=== PATIENT | male | born 1955 | race American Indian/Alaskan Native ===

== ENCOUNTER 2018-01-14 19:49 | Emergency (ER) | payer OTHER ==
[2018-01-14 21:01] VITALS: BMI 31.5
--- NOTE | 2018-01-14 22:23 | ED PDOC ---
Arrival/HPI - General Historian: Patient <Tyler Birch - Last Filed: 01/15/18 00:13> <Moises Pearl - Last Filed: 01/15/18 00:31> - General Chief Complaint: Male Genitourinary Time Seen by Provider: 01/14/18 20:54 - History of Present Illness Narrative History of Present Illness (Text): Patient is a 62 year old male with past medical history of right hip replacement ("years ago"), currently only taking a multivitamin, presenting to the emergency department with a complaint of problems with urination worsening over that past week. The patient states he has had an increasing in urinary frequency, decreased output, dribbling, increased nocturia (approximately 5 times per night), increased straining and starting and stopping stream. He first noticed increased straining with urination approximately two months ago. It has been getting progressively harder to urinate. Over the past week he has noticed all of the other symptoms. He denies any burning with urination or penile discharge. He has no other complaints at this time. Denies fevers, chills , nausea, vomiting, diarrhea, constipation, chest pain, abdominal pain, shortness of breath, vision changes, headaches, numbness or tingling. (Tyler Birch) Past Medical History - Provider Review Nursing Documentation Reviewed: Yes - Past History Past History: No Previous - Infectious Disease Hx of Infectious Diseases: None - Tetanus Immunization Tetanus Immunization: Unknown - Cardiac Hx Cardiac Disorders: No - Pulmonary Hx Respiratory Disorders: No - Neurological Hx Neurological Disorder: No - HEENT Hx HEENT Disorder: No - Renal Hx Renal Disorder: No - Endocrine/Metabolic Hx Endocrine Disorders: Yes Hx Diabetes Mellitus Type 2: Yes (NIDD) Other/Comment: no medications at present time - Hematological/Oncological Hx Blood Disorders: No - Integumentary Hx Dermatological Disorder: No - Musculoskeletal/Rheumatological Hx Musculoskeletal Disorders: No - Gastrointestinal Hx Gastrointestinal Disorders: No - Genitourinary/Gynecological Hx Genitourinary Disorders: No - Psychiatric Hx Psychophysiologic Disorder: No Hx Substance Use: No - Anesthesia Hx Anesthesia: Yes Hx Anesthesia Reactions: No Hx Malignant Hyperthermia: No - Suicidal Assessment Feels Threatened In Home Enviroment: No <Tyler Birch - Last Filed: 01/15/18 00:13> Family/Social History - Physician Review Nursing Documentation Reviewed: Yes Family/Social History: Unknown Family HX (does not know father), Diabetes ( mother) Smoking Status: Never Smoked Hx Alcohol Use: No Hx Substance Use: No Hx Substance Use Treatment: No <Tyler Birch - Last Filed: 01/15/18 00:13> Allergies/Home Meds <Tyler Birch - Last Filed: 01/15/18 00:13> <Moises Pearl - Last Filed: 01/15/18 00:31> Allergies/Adverse Reactions: Allergies No Known Allergies Allergy (Verified 03/23/16 12:30) Review of Systems - Physician Review All systems were reviewed & negative as marked: Yes - Review of Systems Constitutional: Normal Eyes: Normal ENT: Normal Respiratory: Normal Cardiovascular: Normal Gastrointestinal: Normal Genitourinary Male: Frequency, Urinary Output Changes (decreased), Other (poor stream, starting and stopping). absent: Hematuria Musculoskeletal: Normal Skin: Normal Neurological: Normal Endocrine: Normal Hemo/Lymphatic: Normal Psychiatric: Normal <Tyler Birch - Last Filed: 01/15/18 00:13> Physical Exam - Systems Exam Head: Present: Atraumatic, Normocephalic Pupils: Present: PERRL Extroacular Muscles: Present: EOMI Conjunctiva: Present: Normal Mouth: Present: Moist Mucous Membranes Neck: Present: Normal Range of Motion Respiratory/Chest: Present: Clear to Auscultation, Good Air Exchange. No: Respiratory Distress, Accessory Muscle Use Cardiovascular: Present: Regular Rate and Rhythm, Normal S1, S2. No: Murmurs Abdomen: No: Tenderness, Distention, Peritoneal Signs Back: Present: Normal Inspection Upper Extremity: Present: Normal Inspection. No: Cyanosis, Edema Lower Extremity: Present: Normal Inspection. No: Edema Neurological: Present: GCS=15, CN II-XII Intact, Speech Normal Skin: Present: Warm, Dry, Normal Color. No: Rashes Psychiatric: Present: Alert, Oriented x 3, Normal Insight, Normal Concentration <Tyler Birch - Last Filed: 01/15/18 00:13> Vital Signs Reviewed: Yes Temperature: Afebrile Blood Pressure: Normal Pulse: Regular Respiratory Rate: Normal Appearance: Positive for: Well-Appearing, Non-Toxic, Comfortable Pain Distress: None Mental Status: Positive for: Alert and Oriented X 3 <Moises Pearl - Last Filed: 01/15/18 00:31> Vital Signs Pulse Resp BP Pulse Ox 01/14/18 23:00 70 18 150/90 100 Medical Decision Making Re-evaluation Time: 22:36 Reassessment Condition: Re-examined, Unchanged - Lab Interpretations I have reviewed the lab results: Yes Interpretation: Abnormal lab values <Tyler Birch - Last Filed: 01/15/18 00:13> <Moises Pearl - Last Filed: 01/15/18 00:31> ED Course and Treatment: 01/14/18 21:30 Ordered UA 01/14/18 22:34 Bladder Scan - post void residual of 223mL - will place straight cath awaiting UA results 01/14/18 23:09 David w/ bag placed, approx. 260mL removed - patient reports relief with catheter. (Tyler Birch) Impression: Pt seen and evaluated with medical library assistant. Aware and agrees with HPI, clinical findings, plan, and management. Pt, whose past medical history includes right hip replacement, presented for decreased urinary output, urinary frequency, and increased nocturia over the past week. Plan: -- Urinalysis -- David catheter placement -- Reassess and disposition 01/14/18 23:05 PROCEDURE: David catheter placement Performed by the emergency provider Consent: Informed consent, after discussion of the risks, benefits, and alternatives to the procedure was obtained. Timeout: A timeout to verify the correct patient, procedure, and site was performed. Indication: Urinary retention Procedure: 18 Urdu David catheter inserted without difficulty. Post-procedure: The patient tolerated the procedure well with no immediate complications. Urine draining without difficulty. Pt reports relief following David catheter insertion. (Moises Pearl) - Lab Interpretations Lab Results: Lab Results 01/14/18 23:02: Urine Color Yellow, Urine Appearance Sl cloudy, Urine pH 6.0, Ur Specific [place] >= 1.030, Urine Protein 100 H, Urine Glucose (UA) Negative, Urine Ketones Negative, Urine Blood Small H, Urine Nitrate Negative, Urine Bilirubin Negative, Urine Urobilinogen 0.2, Ur Leukocyte Esterase Small H, Urine RBC 0 - 2, Urine WBC Tntc, Ur Epithelial Cells 0 - 2, Urine Bacteria Many - Medication Orders Current Medication Orders: Discontinued Medications Ciprofloxacin (Cipro) 500 mg PO ONCE STA PRN Reason: Protocol Stop: 01/14/18 23:43 Disposition/Present on Arrival - Present on Arrival Any Indicators Present on Arrival: No History of DVT/PE: No History of Uncontrolled Diabetes: No Urinary Catheter: No History of Decub. Ulcer: No History Surgical Site Infection Following: None - Disposition Have Diagnosis and Disposition been Completed?: Yes Disposition Time: 00:24 Patient Plan: Discharge <Tyler Birch - Last Filed: 01/15/18 00:13> <Moises Pearl - Last Filed: 01/15/18 00:31> - Disposition Diagnosis: Urinary retention Disposition: HOME/ ROUTINE Patient Problems: Current Active Problems Problem Status Onset Urinary retention Acute Condition: IMPROVED Discharge Instructions (ExitCare): David Catheter, Male Prescriptions: Ciprofloxacin HCl [Cipro] 250 mg PO BID #14 tab Referrals: Monie Yu, [Primary Care Provider] - Follow up with primary Graham Norris MD [Staff Provider] - Follow up with primary Forms: [employer] Translation (Khmer)
[2018-01-14 23:09] VITALS: RESP 18; O2SAT 100
[2018-01-14 23:29] LABS: URINE BILIRUBIN NEGATIVE (NEGATIVE); URINE BLOOD SMALL (NEGATIVE); URINE GLUCOSE (UA) NEGATIVE (NEGATIVE); URINE LEUKOCYTE ESTERASE SMALL Leu/uL (NEGATIVE); URINE PROTEIN 100 mg/dL (<30 mg/dL); URINE UROBILINOGEN 0.2 E.U./dL (<1 E.U./dL)
[2018-01-14 23:36] LABS: URINE APPEARANCE SL CLOUDY (CLEAR); URINE COLOR YELLOW (YELLOW)
[2018-01-14 23:52] LABS: URINE BACTERIA MANY (NEG); URINE EPITHELIAL CELLS 0 - 2 /hpf (0-5); URINE RBC 0 - 2 /hpf (0-2); URINE WBC TNTC /hpf (0-6)
[2018-01-15 00:34] VITALS: BP 148/86; PULSE 69
== END 2018-01-15 00:30 | disposition home or self-care (01) ==
LOC: ED 19:49
DX: R33.9 Retention of urine, unspecified (principal); E11.9 Type 2 diabetes mellitus without complications; Z96.641 Presence of right artificial hip joint